=== PATIENT | male | born 1980 | race Caucasian/White ===

== ENCOUNTER 2016-06-05 16:22 | Emergency (ER) | payer BC ==
[2016-06-05] MEDS ORDERED: Aspirin Low Dose CHEW TAB* 81 MG PO ONE (17:48)
[2016-06-05 17:59] LABS: Hematocrit 44 % (42-52); Hemoglobin 14.9 g/dl (14.0-18.0); Mean Corpuscular HGB Conc 34 g/dl (31-36); Mean Corpuscular Hemoglobin 31 pg (27-31); Mean Corpuscular Volume 91 fL (80-94); Mean Platelet Volume 7 um3 (7.4-10.4); Red Blood Count 4.79 10^6/ul (4.0-5.4); Red Cell Distribution Width 12 % (10.5-15); White Blood Count 7.5 10^3/ul (3.5-10.8)
[2016-06-05 18:11] LABS: Troponin I 0.01 ng/mL (<0.04)
[2016-06-05 18:12] LABS: BUN/Creatinine Ratio 12.2 (8-20); Calcium 9.1 mg/dL (8.6-10.3); EGFR African American 92.5 (>60); Globulin 2.6 g/dL (2-4); Potassium 3.9 mmol/L (3.5-5.0); Total Bilirubin 0.4 mg/dL (0.2-1.0); Total Protein 6.6 g/dL (6.4-8.9)
--- NOTE | 2016-06-05 18:20 | RAD ---
INDICATION: Chest pain COMPARISON: None TECHNIQUE: An AP portable view obtained at 1806 hours is submitted. FINDINGS: Bones/Soft Tissues: There are no acute bony findings. Cardiomediastinal: The cardiomediastinal silhouette is normal. Lungs: There are no infiltrates. Pleura: There are no pleural effusions. Other: None IMPRESSION: NEGATIVE EXAMINATION.
[2016-06-05 21:16] VITALS: BP 118/72
--- NOTE | 2016-06-05 21:34 | ED ---
Maxime Osborn Adam, scribed for Jay Jay Wheat MD on 06/05/16 at 1639 . HPI Chest Pain - HPI Summary HPI Summary: A 36 y/o male presents to the ED BIBA for chest pain that started around 15:30 lasting 30 minutes with associated throat burning and acid reflux. His only other complaint is a sore throat. He denies hoarse voice, SOB, and his symptoms are not aggravated by exertion. Currently the chest pain is not present but he has mild back pain. His PMHx includes GERD - had 2 endoscopies in the last year and both were clear. FHx is positive for cardiac disease - his father had 2 MIs in his 40's. - History of Current Complaint Chief Complaint: EDChestPainROMI Time Seen by Provider: 06/05/16 16:26 Hx Obtained From: Patient Onset/Duration: Started Hours Ago - 15:30 Timing: Lasting Minutes - 30 minutes Initial Severity: Moderate Current Severity: Mild Pain Intensity: 4 Pain Scale Used: 0-10 Numeric Chest Pain Location: Upper Sternal - "chest tightness with acid reflux" but now resolved Chest Pain Radiates: Yes Chest Pain Radiates To:: Back - Currently present in back Character: Tightness Aggravating Factor(s): Nothing Alleviating Factor(s): NTG 123 - x 1 Associated Signs and Symptoms: Positive: Other: - esophageal spasm, sore throat , symptoms not aggravated by exertion. Negative: Shortness of Breath, Hoarseness - Allergy/Home Medications Allergies/Adverse Reactions: Allergies Allergy/AdvReac Type Severity Reaction Status Date / Time Hydrocodone [From Vicoprofen] AdvReac Vomiting Verified 03/30/15 15:28 PMH/Surg Hx/FS Hx/Imm Hx Endocrine/Hematology History: Denies: Hx Diabetes GI History: Reports: Hx Gastroesophageal Reflux Disease - Surgical History Surgery Procedure, Year, and Place: Tonsillectomy 1992 Infectious Disease History: Unable to Obtain/Confirm Infectious Disease History: Reports: Hx Shingles - 2009 Denies: Traveled Outside the [place] in Last 30 Days - Family History Known Family History: Positive: Cardiac Disease - Father had 2 MIs in his 40's - Social History Occupation: Employed Full-time Alcohol Use: Occasionally Substance Use Type: Reports: None Smoking Status (MU): Never Smoked Tobacco Review of Systems Constitutional: Negative Negative: Fever Eyes: Negative Positive: Sore Throat, Other - esophageal spasm Positive: Chest Pain Respiratory: Negative Negative: Shortness Of Breath Positive: Other - Acid reflux Genitourinary: Negative Positive: Myalgia - Back pain Skin: Negative Neurological: Negative Psychological: Normal All Other Systems Reviewed And Are Negative: Yes Physical Exam - Summary Physical Exam Summary: General: Comfortable, pleasant, alert HEENT: Moist mucosa, no pharyngeal redness or swelling Neck: soft, supple, no adenopathy, no edema Heart: S1, S2, RRR, no murmurs, rubs, or gallops Lungs: Clear to auscultation, breathing comfortable, no wheezes or rales Abdominal: Soft, flat, nontender Extremities: No edema, no calf tenderness Neuro: Alert and oriented x 3 Psych: Logical, coherent Vital Signs On Initial Exam: Initial Vitals Temp Pulse Resp BP Pulse Ox 99 F 79 16 122/78 96 06/05/16 16:29 06/05/16 16:29 06/05/16 16:29 06/05/16 16:29 06/05/16 16:29 Diagnostics - Vital Signs Vital Signs Temp Pulse Resp BP Pulse Ox 06/05/16 16:29 99 F 79 16 122/78 96 - Laboratory Lab Results: Lab Results 06/05/16 06/05/16 06/05/16 Range/Units 16:56 16:56 20:08 WBC 7.5 (3.5-10.8) 10^3/ul RBC 4.79 (4.0-5.4) 10^6/ul Hgb 14.9 (14.0-18.0) g/dl Hct 44 (42-52) % MCV 91 (80-94) fL MCH 31 (27-31) pg MCHC 34 (31-36) g/dl RDW 12 (10.5-15) % Plt Count 223 (150-450) 10^3/ul MPV 7 L (7.4-10.4) um3 Neut % (Auto) 67.6 (38-83) % Lymph % (Auto) 22.9 L (25-47) % [place] % (Auto) 7.1 (1-9) % Eos % (Auto) 2.0 (0-6) % Baso % (Auto) 0.4 (0-2) % Absolute Neuts (auto) 5.1 (1.5-7.7) 10^3/ul Absolute Lymphs (auto) 1.7 (1.0-4.8) 10^3/ul Absolute Monos (auto) 0.5 (0-0.8) 10^3/ul Absolute Eos (auto) 0.2 (0-0.6) 10^3/ul Absolute Basos (auto) 0 (0-0.2) 10^3/ul Absolute Nucleated RBC 0.01 10^3/ul Nucleated RBC % 0.1 Sodium 138 (133-145) mmol/L Potassium 3.9 (3.5-5.0) mmol/L Chloride 106 (101-111) mmol/L Carbon Dioxide 27 (22-32) mmol/L Anion Gap 5 (2-11) mmol/L BUN 14 (6-24) mg/dL Creatinine 1.15 (0.67-1.17) mg/dL Est GFR ( Amer) 92.5 (>60) Est GFR (Non-Af Amer) 72.0 (>60) BUN/Creatinine Ratio 12.2 (8-20) Glucose 97 (70-100) mg/dL Calcium 9.1 (8.6-10.3) mg/dL Total Bilirubin 0.40 (0.2-1.0) mg/dL AST 24 (13-39) U/L ALT 40 (7-52) U/L Alkaline Phosphatase 83 (34-104) U/L Troponin I 0.01 0.01 (<0.04) ng/mL Total Protein 6.6 (6.4-8.9) g/dL Albumin 4.0 (3.2-5.2) g/dL Globulin 2.6 (2-4) g/dL Albumin/Globulin Ratio 1.5 (1-3) Result Diagrams: 06/05/16 16:56 06/05/16 16:56 Lab Statement: Any lab studies that have been ordered have been reviewed, and results considered in the medical decision making process. - Radiology CXR Xray Interpretation: No Acute Changes Radiology Interpretation Completed By: Radiologist - EKG 16:33 Cardiac Rate: NL - 70 EKG Rhythm: Sinus Rhythm ST Segment: Normal 20:04 Cardiac Rate: NL - 57 EKG Rhythm: Sinus Rhythm ST Segment: Normal Chest Pain Course/Dx - Course Assessment/Plan: Ordered repeat EKG and troponin for 20:00. Patient presents with a sudden episode of chest pain with radiation to neck/throat where he had a burning sensation. Patient has a longstanding hx of acid reflux. No cardiac risk factors except for FHx. Pain was atypical as it was at rest and there were no other ischemic equivalents. His heart score was 1. If two Troponins are negative, he can be assessed as an outpatient. He agrees to follow up and will likely need a stress test but should he have any worsening symptoms or new symptoms, he agress to return for reevaluation. - Chest Pain Differential Diagnosis/HQI/PQRI: Acute GA, ACS, Angina, Aortic Aneurysm, Lower Respiratory Infection, Pulmonary Embolism - Diagnoses Provider Diagnoses: Chest pain Discharge - Discharge Plan Condition: Good Disposition: HOME Patient Education Materials: Chest Pain (ED) Referrals: Maverick Dominguez MD [Medical Doctor] - The documentation as recorded by the Maxime medrano Adam accurately reflects the service I personally performed and the decisions made by , Jay Jay Wheat MD.
== END 2016-06-05 21:24 | disposition home or self-care (01) ==
LOC: ED 16:22
DX: R07.9 Chest pain, unspecified (principal); K21.9 Gastro-esophageal reflux disease without esophagitis; Z88.5 Allergy status to narcotic agent; Z82.49 Family history of ischemic heart disease and other diseases of the circulatory system
CPT/HCPCS: 36415; 71010; 80053; 84484; 85025; 86703; 93005; 99283

== ENCOUNTER 2017-04-23 10:31 | Emergency (ER) | payer SELFPAY ==
[2017-04-23 10:52] VITALS: BP 145/90
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
== END 2017-04-23 12:11 | disposition home or self-care (01) ==
LOC: ED 10:31
DX: Z77.21 Contact with and (suspected) exposure to potentially hazardous body fluids (principal); R09.89 Other specified symptoms and signs involving the circulatory and respiratory systems; R05 Cough; K13.0 Diseases of lips; K21.9 Gastro-esophageal reflux disease without esophagitis; Z88.5 Allergy status to narcotic agent
CPT/HCPCS: 99283

== ENCOUNTER 2017-09-09 06:26 | Emergency (ER) | payer BC ==
[2017-09-09] MEDS ORDERED: Ondansetron INJ* 2 MG/ML VIAL IV ONE (07:41)
[2017-09-09] MEDS ORDERED: NS 0.9% 1000 ML* 1,000 ML IV ONE (07:41)
[2017-09-09] MEDS ORDERED: Morphine INJ* 4 MG/ML 1 ML CARPUJECT IV ONE (07:41)
[2017-09-09] MEDS ORDERED: Morphine VIAL* 4 MG/ML VIAL (1 ml vial) IV ONE ×2 (08:01→10:43)
[2017-09-09 08:07] LABS: ABS Basophils 0 10^3/ul (0-0.2); ABS Eosinophils 0 10^3/ul (0-0.6); ABS Lymphocytes 0.7 10^3/ul (1.0-4.8); ABS Monocytes 0.7 10^3/ul (0-0.8); ABS Neutrophils 6.5 10^3/ul (1.5-7.7); ABS Nucleated RBC 0 10^3/ul; Eosinophil % 0.2 % (0-6); Hematocrit 43 % (42-52); Hemoglobin 15.3 g/dl (14.0-18.0); Lymphocyte % 9.3 % (25-47); Mean Corpuscular HGB Conc 36 g/dl (31-36); Mean Corpuscular Hemoglobin 33 pg (27-31); Mean Corpuscular Volume 92 fL (80-94); Mean Platelet Volume 6.6 um3 (7.4-10.4); Nucleated Red Blood Cells % 0; Platelet Count 241 10^3/ul (150-450); Red Blood Count 4.69 10^6/ul (4.0-5.4); Red Cell Distribution Width 13 % (10.5-15)
--- NOTE | 2017-09-09 08:15 | ED ---
Abdominal Pain/Male - HPI Summary HPI Summary: Patient is a 37-year-old male who presents to the emergency department with a 2 day history of vomiting, diarrhea and left lower quadrant abdominal pain. Pain is intermittent and sharp in nature. Denies passing blood. Denies fever, chills, chest pain, shortness of breath. No prior abdominal surgeries. Does not take any medications. Patient states he has an extensive history of diverticulitis. Last episode was roughly 4 years ago. Patient states symptoms are similar today. No current modifying factors. Symptoms are moderate in severity. - History of Current Complaint Chief Complaint: EDAbdPain Stated Complaint: ABD PAIN Time Seen by Provider: 09/09/17 06:37 Hx Obtained From: Patient Pain Intensity: 8 - Allergies/Home Medications Allergies/Adverse Reactions: Allergies Allergy/AdvReac Type Severity Reaction Status Date / Time No Known Allergies Allergy Verified 09/09/17 06:31 PMH/Surg Hx/FS Hx/Imm Hx Previously Healthy: Yes Endocrine/Hematology History: Denies: Hx Diabetes GI History: Reports: Hx Gastroesophageal Reflux Disease - Surgical History Surgery Procedure, Year, and Place: Tonsillectomy 1992 Infectious Disease History: No Infectious Disease History: Reports: Hx Shingles - 2009 Denies: Traveled Outside the [place] in Last 30 Days - Family History Known Family History: Positive: Cardiac Disease - Father had 2 MIs in his 40's - Social History Occupation: Employed Full-time Lives: Alone Alcohol Use: Occasionally Substance Use Type: Reports: None Smoking Status (MU): Never Smoked Tobacco Review of Systems Constitutional: Negative Negative: Fever, Chills Eyes: Negative ENT: Negative Cardiovascular: Negative Negative: Palpitations, Chest Pain Respiratory: Other Negative: Shortness Of Breath, Cough Positive: Abdominal Pain, Vomiting, Diarrhea, Nausea Genitourinary: Negative Musculoskeletal: Negative Neurological: Negative All Other Systems Reviewed And Are Negative: Yes Physical Exam Triage Information Reviewed: Yes Vital Signs On Initial Exam: Initial Vitals Temp Pulse Resp BP Pulse Ox 98.7 F 76 16 133/85 99 09/09/17 06:27 09/09/17 06:27 09/09/17 06:27 09/09/17 06:27 09/09/17 06:27 Vital Signs Reviewed: Yes Appearance: Positive: Pain Distress - Patient lying on bed with his eyes closed. Appears uncomfortable but nontoxic. Thickened other present. Skin: Positive: Warm, Dry Head/Face: Positive: Normal Head/Face Inspection Eyes: Positive: Normal Neck: Positive: Supple Respiratory/Lung Sounds: Positive: Clear to Auscultation, Breath Sounds Present Cardiovascular: Positive: Normal, RRR Abdomen Description: Positive: Other: - Abdomen is diffusely tender on light palpation with guarding. No rigidity or rebound tenderness. Bowel Sounds: Positive: Hypoactive Musculoskeletal: Positive: Normal Neurological: Positive: Normal, CN Intact II-III Psychiatric: Positive: Normal Diagnostics - Vital Signs Vital Signs Temp Pulse Resp BP Pulse Ox 09/09/17 06:27 98.7 F 76 16 133/85 99 - Laboratory Lab Results: Lab Results 09/09/17 Range/Units 07:56 WBC 8.0 (3.5-10.8) 10^3/ul RBC 4.69 (4.0-5.4) 10^6/ul Hgb 15.3 (14.0-18.0) g/dl Hct 43 (42-52) % MCV 92 (80-94) fL MCH 33 H (27-31) pg MCHC 36 (31-36) g/dl RDW 13 (10.5-15) % Plt Count 241 (150-450) 10^3/ul MPV 6.6 L (7.4-10.4) um3 Neut % (Auto) 82.0 (38-83) % Lymph % (Auto) 9.3 L (25-47) % [place] % (Auto) 8.3 H (0-7) % Eos % (Auto) 0.2 (0-6) % Baso % (Auto) 0.2 (0-2) % Absolute Neuts (auto) 6.5 (1.5-7.7) 10^3/ul Absolute Lymphs (auto) 0.7 L (1.0-4.8) 10^3/ul Absolute Monos (auto) 0.7 (0-0.8) 10^3/ul Absolute Eos (auto) 0 (0-0.6) 10^3/ul Absolute Basos (auto) 0 (0-0.2) 10^3/ul Absolute Nucleated RBC 0 10^3/ul Nucleated RBC % 0 Result Diagrams: 09/09/17 07:56 09/09/17 07:56 Lab Statement: Any lab studies that have been ordered have been reviewed, and results considered in the medical decision making process. Abdominal Pain Fem Course/Dx - Course Course Of Treatment: Patient presenting to the ER for the above symptoms. He is afebrile with stable vital signs. Oxygen saturation is 99% on room air which is normal. We'll obtain labs and CT scan for further evaluation. Suspect diverticulitis given patient's history. Patient was started on IV fluids, morphine and Zofran. CT read per radiology: IMPRESSION: Dilated loops of small bowel especially in the distal small bowel. Area of. narrowing is noted in the midline in the small bowel in the distal ileum. I cannot exclude. a partial bowel obstruction. Addition there is fluid in the colon and underlying. gastroenteritis is not excluded. Labs are unremarkable. On re-exam pt. is feeling better after a second dose of pain medication. He is tolerating water and has had no vomiting in the ER. Case discussed briefly with Dr. Youngblood. Pt.'s exam and symptoms is most consistent with gastroenteritis. Results were discussed with patient. He is comfortable being discharged home at this time. Prescription for Zofran and sent. Advised to increase fluids. Clear liquid diet 24 hours. To return to the ER for increased pain, uncontrollable vomiting or if concerned. Patient understands and agrees with plan. - Diagnoses Differential Diagnosis/HQI/PQRI: Appendicitis, Bowel Obstruction, Diverticulitis , Gall Bladder Disease, Ischemic Bowel, Pancreatitis Provider Diagnoses: Gastroenteritis Discharge - Sign-Out/Discharge Documenting (check all that apply): Discharge/Admit/Transfer - Discharge Plan Condition: Good Disposition: HOME Prescriptions: Ondansetron TAB* [Zofran 4 MG Tab*] 4 mg PO Q6H PRN #12 tab PRN Reason: Nausea Patient Education Materials: Gastroenteritis (ED) Referrals: Geovanni Sow MD [Primary Care Provider] - Additional Instructions: Follow up with PCP Zofran as directed Increase fluids Clear liquid diet x 24 hours Return to ER for increased pain, uncontrollable vomiting or if concerned - Billing Disposition and Condition Condition: GOOD Disposition: HOME
[2017-09-09 08:27] LABS: EGFR Non-African American 85.1 (>60)
[2017-09-09] MEDS ORDERED: Iohexol 300* (CONTRAST) 10 ML SDV IV ONE (08:32)
--- NOTE | 2017-09-09 09:57 | RAD ---
Indication: Left lower quadrant pain. Contrast: Administered 115.1 ml of OMNIPAQUE 300 mg/ml CT of the abdomen and pelvis was performed after IV contrast administration. Coronal and sagittal reconstructed images were obtained. No oral contrast was administered. Lung bases demonstrate no pleural fluid, nodules or masses. Heart demonstrates no pericardial effusion. The liver is normal in size. No focal lesions or intrahepatic duct dilatation is noted. Gallbladder demonstrates no calcified gallstones. No pericholecystic fluid or wall thickening is identified. The pancreas demonstrates no mass or pancreatic duct dilatation. No adrenal masses are noted. The kidneys demonstrate symmetric nephrograms without focal lesions. No retroperitoneal lymphadenopathy is noted. Fluid-filled colon is present throughout. There is areas of narrowing in the distal ileum. Partial bowel obstruction is not excluded. Appendix is normal. Diverticulosis of the sigmoid colon is noted without definite evidence of diverticulitis. IMPRESSION: Dilated loops of small bowel especially in the distal small bowel. Area of narrowing is noted in the midline in the small bowel in the distal ileum. I cannot exclude a partial bowel obstruction. Addition there is fluid in the colon and underlying gastroenteritis is not excluded.
[2017-09-09 10:02] LABS: Urine Appearance Clear; Urine Blood Negative (Negative); Urine Color Yellow; Urine Ketones Negative (Negative); Urine Protein Negative (Negative); Urine Specific Gravity > 1.060 (1.010-1.030); Urine Urobilinogen Negative (Negative)
[2017-09-09 11:34] VITALS: BP 131/84
== END 2017-09-09 11:42 | disposition home or self-care (01) ==
LOC: ED 06:26
DX: K52.9 Noninfective gastroenteritis and colitis, unspecified (principal); K59.39 Other megacolon
CPT/HCPCS: 36415; 74177; 80053; 81003; 83605; 83690; 85025; 86140; 96374; 96375; 96376; 99283; J2270; J2405; Q9967

== ENCOUNTER 2019-03-03 14:05 | Emergency (ER) | payer BC, OTHER ==
[2019-03-03] MEDS ORDERED: Albuterol 2.5 MG/3 ML NEB.SOL* (0.083%) INH ONE (14:59)
[2019-03-03] MEDS ORDERED: Ipratropium 0.5MG/2.5ML NEB* 0.5 MG/2.5 ML NEB.SOLN INH ONE (14:59)
[2019-03-03] MEDS ORDERED: predniSONE TAB* 20 MG PO ONE (14:59)
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
[2019-03-03] MEDS ORDERED: Albuterol HFA INHALER* 8 gm MDI INH ONE (15:57)
[2019-03-03 16:29] VITALS: BP 148/84
== END 2019-03-03 16:28 | disposition home or self-care (01) ==
LOC: UCEAST 14:05
DX: J98.01 Acute bronchospasm (principal); J70.5 Respiratory conditions due to smoke inhalation; J02.9 Acute pharyngitis, unspecified
CPT/HCPCS: 99213; A9270-GY; G0463; J7512

== ENCOUNTER 2019-04-16 15:46 | Emergency (ER) | payer BC ==
[2019-04-16 16:00] VITALS: BP 154/80
[2019-04-16] MEDS ORDERED: Tetan/Diph/Pertus SYR(Tdap)* 0.5 ML SYR(BOOSTRIX) use SYR contains LATEX IM ONE (16:15)
--- NOTE | 2019-04-16 16:21 | UC ---
Lower Extremity/Ankle HPI - HPI Summary HPI Summary: 39-year-old male comes in with chief complaint of right lower leg and left hip pain after a fall yesterday. Patient reports he fell into an open manhole cover. He had an abrasion on the right nguyen that was bleeding and he cleaned it. The abrasion on the right nguyen is not draining at this time. He's been having pain in the right nguyen and also the left hip. He has swelling of the right nguyen. It is tender to palpation and with range of motion. Also has pain over the greater trochanter of the left hip. That is also worse with palpation and range of motion. No weakness or numbness. Patient believes his last tetanus shot was more than 5 years ago. - History of Current Complaint Chief Complaint: UCLowerExtremity Stated Complaint: RIGHT NGUYEN INJURY Time Seen by Provider: 04/16/19 16:06 Pain Intensity: 7 - Allergies/Home Medications Allergies/Adverse Reactions: Allergies Allergy/AdvReac Type Severity Reaction Status Date / Time No Known Allergies Allergy Verified 04/16/19 15:59 PMH/Surg Hx/FS Hx/Imm Hx Previously Healthy: Yes - Surgical History Surgical History: Yes Surgery Procedure, Year, and Place: Tonsillectomy 1992 - Family History Known Family History: Positive: Cardiac Disease - Father had 2 MIs in his 40's, Hypertension Negative: Respiratory Disease - Social History Alcohol Use: Occasionally Substance Use Type: None Smoking Status (MU): Never Smoked Tobacco - Immunization History Most Recent Influenza Vaccination: 3 weeks ago Most Recent Tetanus Shot: <10years Review of Systems All Other Systems Reviewed And Are Negative: Yes Constitutional: Positive: Negative Skin: Positive: Other - SEE HPI Eyes: Positive: Negative ENT: Positive: Negative Respiratory: Positive: Negative Cardiovascular: Positive: Negative Gastrointestinal: Positive: Negative Motor: Positive: Negative Neurovascular: Positive: Negative Musculoskeletal: Positive: Other: - SEE HPI Neurological: Positive: Negative Psychological: Positive: Negative Is Patient Immunocompromised?: No Physical Exam Triage Information Reviewed: Yes Appearance: Well-Appearing, Well-Nourished, Pain Distress - MILD WITH ROM AND EXAM OF RT NGUYEN AND LEFT HIP Vital Signs: Initial Vital Signs Temp 97 F 04/16/19 15:54 Pulse 76 04/16/19 15:54 Resp 16 04/16/19 15:54 BP 154/80 04/16/19 15:54 Pulse Ox 97 04/16/19 15:54 Vital Signs Reviewed: Yes Eye Exam: Normal Eyes: Positive: Conjunctiva Clear Neck: Positive: Supple Respiratory: Positive: No respiratory distress Musculoskeletal: Positive: Other: - Right nguyen is swollen and tender to palpation. Minimal discomfort on the posterior aspect of the calf to palpation. Patient has full range of motion of his ankle and toes and knee however foot plantar flexion and dorsiflexion does increase the pain in the nguyen. Normal dorsalis pedis posterior tibial pulses normal sensation normal capillary refill. Left hip is tender to palpation over the left greater trochanter. He has full range of motion full-strength of the left hip. Neurological: Positive: Alert Psychological: Positive: Age Appropriate Behavior Skin: Positive: Other - 5 cm area of abrasion right nguyen. It's scabbed over at this time. No drainage no streaking. Lower Extremity Course/Dx - Course Course Of Treatment: Gun Numberer: James Moreno C ([id number]) Plastic Surgery Nurse: NELDA ( NELDA) Report Date: 04/16/2019 16:57:00 Report Status: Final ====== Start of Report Content Patient Name: CONNOR LÓPEZ Medical Record#: [id number] Ordering Physician: James Wolfe MD Acct.#: [id number] : 01/1980 Age: 39 Sex: M Location: [facility] Exam Date: 04/16/19 1614 ADM Status: REG ER Order Information: HIP LEFT 2 VIEWS AND PELVIS Accession Number: [id number] CPT: 91560 Indication: Lateral LEFT hip and greater trochanter pain post fall. Comparison: September 09, 2017 CT Technique: AP pelvis and AP and frog-leg lateral views LEFT hip. REPORT AND IMPRESSION: #. Normally located LEFT hip. #. Negative for LEFT proximal femur or pelvic fracture or pelvic joint diastases. #. Moderate RIGHT and mild LEFT hip osteoarthritis. #. Soft tissue edema lateral to the LEFT hip. <Electronically signed by James Moreno MD in OV> 04/16/191652 Dictated By: James Moreno MD Dictated Date/ Time: 04/16/191650 Transcribed Date/Time: 04/16/191650 Copy to: CC:No Primary Care Phys,NOPCP ; James Wolfe MD Imaging - [facility] Imaging - [facility] Imaging - [facility] [address] [place] [id number] [address] [address] ph ) ph ([phone]) ph ([phone]) End of Report Content ==== Gun Numberer: Jamse Moreno C, ([id number]) Plastic Surgery Nurse: NELDA ( MCKENZIEANCE) Report Date: 04/16/2019 16:57:00 Report Status: Final ====== Start of Report Content Patient Name: CONNOR LÓPEZ Medical Record#: [id number] Ordering Physician: James Wolfe MD Acct.#: [id number] : 01/1980 Age: 39 Sex: M Location: [facility] Exam Date: 04/16/19 1614 ADM Status: REG ER Order Information: HIP LEFT 2 VIEWS AND PELVIS Accession Number: [id number] CPT: 35583 Indication: Lateral LEFT hip and greater trochanter pain post fall. Comparison: September 09, 2017 CT Technique: AP pelvis and AP and frog-leg lateral views LEFT hip. REPORT AND IMPRESSION: #. Normally located LEFT hip. #. Negative for LEFT proximal femur or pelvic fracture or pelvic joint diastases. #. Moderate RIGHT and mild LEFT hip osteoarthritis. #. Soft tissue edema lateral to the LEFT hip. <Electronically signed by James Moreno MD in OV> 04/16/191652 Dictated By: James Moreno MD Dictated Date/ Time: 04/16/191650 Transcribed Date/Time: 04/16/191650 Copy to: CC:No Primary Care Phys,NOPCP ; James Wolfe MD Imaging - [facility] Imaging - [facility] - [facility] [address] [place] [address] ph ) ph ([phone]) ph ([phone]) End of Report Content ==== I discussed the x-rays with the patient. No fracture seen. Plan is ice anti- inflammatories rest and elevation. We discussed the signs and symptoms of compartment syndrome which the patient does not have at this time. Did let him know that if he had any of those signs he needs to get reevaluated right away. Patient's to get reevaluated if not improving or worse either with orthopedics his primary care doctor or by returning here or the emergency department. - Differential Dx/Diagnosis Provider Diagnosis: Injury of right nguyen, Abrasion of right lower leg, Hip pain, left Discharge ED - Sign-Out/Discharge Documenting (check all that apply): Patient Departure All imaging exams completed and their final reports reviewed: Yes - Discharge Plan Condition: Stable Disposition: HOME Prescriptions: Cephalexin CAP* [Keflex CAP*] 500 mg PO TID #21 cap Patient Education Materials: Contusion in Adults (ED), Abrasion (ED), Hip Pain (ED), Leg Pain (ED) Referrals: [facility] [place] PHYSICIAN REFERRAL [Outside] Nena Kruse MD [Medical Doctor] - Additional Instructions: FOLLOW UP WITH YOUR PRIMARY CARE DOCTOR OR ORTHOPEDICS IF NOT COMPLETELY IMPROVED. You were given the T tap shot here today clinic which is for tetanus, diphtheria and pertussis. GET REEVALUATED SOONER IF NOT IMPROVED OR WORSE OR ANY QUESTIONS OR CONCERNS. - Billing Disposition and Condition Condition: STABLE Disposition: Home
== END 2019-04-16 17:20 | disposition home or self-care (01) ==
LOC: UCEAST 15:46
DX: M25.552 Pain in left hip (principal); S80.811A Abrasion, right lower leg, initial encounter; S89.91XA Unspecified injury of right lower leg, initial encounter; W19.XXXA Unspecified fall, initial encounter; Y92.9 Unspecified place or not applicable
CPT/HCPCS: 90715; 99212; G0463